=== PATIENT | female | born 1990 | race Caucasian/White ===

== ENCOUNTER → 2018-07-04 | Day surgery (SDC) | payer BC ==
[~2018-07-04] MED LIST: AZITHROMYCIN250 MG PO; BACK CREAM TOP; BUPIVACAINE 0.25% 30ML SDV INJ ONE; CELEBREX200 MG PO; CIPRO PO; CLONAZEPAM0.5 MG PO; DEXAMETHASONE SOD PHOS 10 MG/1 ML VIAL ONE; FENTANYL CITRATE/PF 100MCG/2 ML INJ ONE; FLEXERIL5 MG PO; IOPAMIDOL 200 MG/ML 20 ML VIAL IT ONE; LIDOCAINE HCL 1% 30ML-PF VIAL ONE; LIDOCAINE HCL 2% LOCAL INJ 5 ML SDV VIAL INJ ONE; LOESTRIN FE 1-1 EACH PO; MEDROL4 MG/DOSE-; MIDAZOLAM HCL 2 MG/2 ML VIAL ONE; ONDANSETRON HCL INJ 2MG/ML 2ML 2 MG/ML VIAL ONE; PROPOFOL IV EMULSION 10 MG/ML 20 ML VIAL ONE; SERTRALINE HCL100 MG PO; SERTRALINE HCL50 MG PO; SUCRALFATE1 GM PO; TUSSIN CF SYRU118 ML PO
[2018-07-04 08:25] VITALS: BP 115/74
== END | disposition home or self-care (01) ==
LOC: OR 05:23
PROVIDERS: ATTEND Physical Medicine & Rehabilitation Pain Medicine
DX: M54.16 Radiculopathy, lumbar region (principal); M54.17 Radiculopathy, lumbosacral region; R93.7 Abnormal findings on diagnostic imaging of other parts of musculoskeletal system; K21.9 Gastro-esophageal reflux disease without esophagitis; F41.0 Panic disorder [episodic paroxysmal anxiety]; Z88.6 Allergy status to analgesic agent; Z88.0 Allergy status to penicillin; Z88.8 Allergy status to other drugs, medicaments and biological substances; Z91.048 Other nonmedicinal substance allergy status; Z68.33 Body mass index [BMI] 33.0-33.9, adult
CPT/HCPCS: 64483; 64484; 81025; J1100; J2001 ×2; J2250; J2405; J2704; Q9967; 77003